=== PATIENT | male | born 1955 | race Caucasian/White ===

== ENCOUNTER 2019-11-18 07:53 | Inpatient (IN) | payer MEDICARE, BC ==
[2019-11-12 12:40] LABS: BASOPHILS % (AUTO) 0.8 % (0.0-2.0); EOSINOPHILS % (AUTO) 2.1 % (1.0-6.0); HEMATOCRIT 47.2 % (41-53); HEMOGLOBIN 15.8 g/dL (13.5-17.5); LYMPHOCYTES % (AUTO) 21.2 % (22.0-44.0); MEAN CORPUSCULAR HEMOGLOBIN 31.9 pg (26.0-34.0); MEAN CORPUSCULAR HGB CONC 33.6 G/dL (31.0-37.0); MEAN CORPUSCULAR VOLUME 95 fL (80-100); MONOCYTES # (AUTO) 0.7 K/uL (0.1-1.0); MONOCYTES % (AUTO) 7.5 % (2.0-9.0); NEUTROPHILS # (AUTO) 6.5 K/uL (1.8-7.7); NEUTROPHILS % (AUTO) 68.4 % (40.0-70.0); PLATELET COUNT (AUTO) 210 K/uL (150-450); RED BLOOD CELL COUNT(AUTO) 4.97 MIL/uL (4.50-5.90); RED CELL DISTRIBUTION WIDTH 13.6 % (11.5-14.5)
[2019-11-12 12:53] LABS: INR 0.9 (0.9-1.1); PROTHROMBIN TIME 9.6 SEC (9.4-11.6)
[2019-11-12 12:58] LABS: ANION GAP 5 mmol/L (8-16); CARBON DIOXIDE 31 mmol/L (22-29); CHLORIDE 100 mmol/L (98-107); CREATININE 1.12 mg/dL (0.60-1.30); GLUCOSE,RANDOM 109 mg/dL (70-110); POTASSIUM 4.7 mmol/L (3.5-5.1); SODIUM SERUM 136 mmol/L (136-145); UREA NITROGEN, BLOOD 12 mg/dL (7-18)
[2019-11-12 12:59] LABS: CALCIUM, TOTAL 9.2 mg/dL (8.8-10.5); GLOMERULAR FILTR. RATE CALC > 60 mL/min (>60)
[2019-11-12 13:11] LABS: ALANINE AMINOTRANSFERASE 27 U/L (12-78); ALBUMIN 4.1 g/dL (3.4-5.0); ALKALINE PHOSPHATASE 64 U/L (46-116); ASPARTATE AMINOTRANSFERASE 24 U/L (15-37); BILIRUBIN,TOTAL 0.4 mg/dL (0.1-1.0); TOTAL PROTEIN, SERUM 7.8 g/dL (6.4-8.2)
[~2019-11-18] VITALS: Ht 167.6 cm; Wt 72.7 kg
[~2019-11-18 07:53] MED LIST: CYCLOBENZAPRINE HCL 10 MG TABLET PO PRN; CeFAZolin 2 GM/DEXTROSE 50 ML IV ONE; FentaNYL CITRATE-PF 100 MCG/2 ML VIAL IVP PRN; HYDROmorphone 2 MG/ML SYRINGE IVP PRN; MEPERIDINE-PF 25 MG/ML VIAL IVP PRN; ONDANSETRON HCL 4 MG/2 ML VIAL IVP PRN; OxyCODONE HCL/ACETAMINOPHEN 10-325 MG TABLET PO PRN; RINGERS SOLUTION,LACTATED 1,000 ML IV ONE
[2019-11-18] MEDS: OXYGEN THERAPY IH SCH (08:00)
[2019-11-18] MEDS ORDERED: CeFAZolin 2 GM/DEXTROSE 50 ML IV ONE (08:00)
[2019-11-18] MEDS ORDERED: RINGERS SOLUTION,LACTATED 1,000 ML IV ONE (08:00)
[2019-11-18] MEDS ORDERED: ONDANSETRON HCL 4 MG/2 ML VIAL IVP PRN (08:45)
[2019-11-18] MEDS ORDERED: ZOLPIDEM TARTRATE 10 MG TABLET PO PRN (08:45)
[2019-11-18] MEDS ORDERED: BENZOCAINE/MENTHOL LOZENGE PO PRN (08:45)
[2019-11-18] MEDS ORDERED: DiphenhydrAMINE HCL 50 MG/ML VIAL IVP PRN (08:45)
[2019-11-18] MEDS ORDERED: ACETAMINOPHEN 1000 MG/ISO-OSM 100 ML IV ONE (08:51)
[2019-11-18] MEDS: ACETAMINOPHEN 1000 MG/ISO-OSM 100 ML IV SCH ×3 (08:53→20:47)
[2019-11-18] MEDS: DOCUSATE SODIUM 100 MG CAPSULE PO SCH ×2 (09:00→20:40)
[2019-11-18] MEDS ORDERED: FAMO20 PO (09:03)
[2019-11-18] MEDS ORDERED: BENA5TAB26 PO (09:03)
[2019-11-18] MEDS ORDERED: METO50 PO (09:03)
[2019-11-18] MEDS ORDERED: TRAZ150 PO (09:03)
[2019-11-18] MEDS ORDERED: HYDR-4069 PO (09:03)
[2019-11-18] MEDS ORDERED: POTA8TAB4 PO (09:03)
[2019-11-18] MEDS ORDERED: FURO40 PO (09:03)
[2019-11-18] MEDS ORDERED: DULO40CA2 PO (09:03)
[2019-11-18] MEDS ORDERED: LORA-1000 PO (09:03)
[2019-11-18] MEDS ORDERED: BUPIVACAINE/EPI/PF 0.5% 30 ML VIAL ONE (09:05)
[2019-11-18] MEDS ORDERED: VANCOMYCIN HCL 1 GM/VIAL ONE (09:13)
[2019-11-18] MEDS ORDERED: BUPIVACAINE LIPOSOME/PF 1.3%-13.3MG/ML SUSPENSION 10 ML VIAL INJ ONE (09:15)
[2019-11-18 15:53] VITALS: BP 144/99
[2019-11-18] MEDS ORDERED: SODIUM CHLORIDE 0.9% 500 ML IV ONE (16:50)
[2019-11-18] MEDS ORDERED: TRAZ-252 PO (19:14)
[2019-11-18] MEDS ORDERED: ATOR-2 PO (19:14)
[2019-11-18] MEDS ORDERED: DULO60CA44 PO (19:14)
[2019-11-18 20:46] VITALS: BP 119/74
[2019-11-18] MEDS: MAG HYDROX/AL HYDROX/SIMETH 30 ML SUSP UDCUP PO PRN (22:00)
[2019-11-19 00:15] VITALS: BP 149/93
[2019-11-19] MEDS: ACETAMINOPHEN 1000 MG/ISO-OSM 100 ML IV SCH (02:37)
[2019-11-19] MEDS: MAG HYDROX/AL HYDROX/SIMETH 30 ML SUSP UDCUP PO PRN (03:31)
[2019-11-19 04:35] VITALS: BP 147/87
[2019-11-19] MEDS ORDERED: ROCURONIUM BROMIDE 10 MG/ML 5 ML VIAL IVP ONE (05:00)
[2019-11-19] MEDS ORDERED: FentaNYL CITRATE-PF 100 MCG/2 ML VIAL IVP ONE (05:00)
[2019-11-19] MEDS ORDERED: PROPOFOL 1% 20 ML VIAL IVP ONE (05:00)
[2019-11-19] MEDS ORDERED: DEXAMETHASONE SOD PHOS 4 MG/ML VIAL IVP ONE (05:00)
[2019-11-19] MEDS ORDERED: ONDANSETRON HCL 4 MG/2 ML VIAL IVP ONE (05:00)
[2019-11-19] MEDS ORDERED: SUCCINYLCHOLINE CHLORIDE 20 MG/ML 10 ML VIAL IVP ONE (05:00)
[2019-11-19] MEDS ORDERED: EPHEDrine SULFATE 50 MG/ML VIAL IM ONE (05:00)
[2019-11-19] MEDS: OXYGEN THERAPY IH SCH (08:00)
[2019-11-19] MEDS: DOCUSATE SODIUM 100 MG CAPSULE PO SCH (08:40)
[2019-11-19 09:45] VITALS: BP 136/88
== END 2019-11-19 10:58 | disposition home or self-care (01) | DRG 520 ==
LOC: 6N 07:53 → 4E 13:39
PROVIDERS: ADMIT Orthopaedic Surgery Orthopaedic Surgery of the Spine; ATTEND Orthopaedic Surgery Orthopaedic Surgery of the Spine
PROC: 00NY0ZZ Release Lumbar Spinal Cord, Open Approach (ICD-10-PCS; principal; 2019-11-18 10:30)
DX: M48.061 Spinal stenosis, lumbar region without neurogenic claudication (principal)
CPT/HCPCS: 87081; 93005; 97116; 97161; 97165; G0378; J0131; J0330; J0690; J1100; J2405; J2704; J3010; J3370; J3490; J7040; J7120